=== PATIENT | female | born 1980 | race Two or more races ===

== ENCOUNTER → 2016-11-24 | Outpatient (CLI) | payer OTHER, MEDICAID ==
--- NOTE | 2016-11-24 13:30 | MA ---
Digital Screening Mammogram History: Bilateral breast implants. Screening mammogram. Right sided breast pain. Breast parenchymal density: Type III pattern. Technique: Four views of each breast are obtained including CC and oblique lateral Scar (implant di splaced) and non-Scar (implant not displaced) views. CAD is utilized using the iCAD product. Comparison: Baseline evaluation. Findings: Bilateral breast implants are in place. There are no masses, abnormal clusters of microcalc ifications, or lymphadenopathy. Impression: Negative mammogram. BI-RADS 1. The [employer] recommends routine rex al mammogram to begin at age 40 unless clinically indicated to perform earlier. Clinical followup is recommended on all palpable nodules. Despite negative or benign imaging, if the palpable abnormality increases in size, additional imaging followup may be necessary or possibly kayla gical consultation. [facility] will send a result letter to the patient. The results of this study were rev iewed with the patient through an language interpreter. Negative mammography should not preclude additional workup of a clinically suspicious finding. The patient's information is entered into a reminder system with a target due date for her next mammo gram.
== END ==
LOC: BMCIMAGING 12:20
PROVIDERS: ATTEND Internal Medicine
DX: N64.4 Mastodynia (principal)
CPT/HCPCS: G0204

== ENCOUNTER → 2018-04-16 | Outpatient (CLI) | payer OTHER, MEDICAID | LOC: BMCIMAGING 15:51 | PROVIDERS: ATTEND Internal Medicine | DX: M79.604 Pain in right leg (principal); M79.89 Other specified soft tissue disorders ==

== ENCOUNTER → 2018-08-05 | Outpatient (CLI) | payer OTHER | LOC: BMCIMAGING 16:12 | PROVIDERS: ATTEND Family Medicine | DX: M79.661 Pain in right lower leg (principal); M79.89 Other specified soft tissue disorders ==

== ENCOUNTER → 2019-02-25 | Outpatient (CLI) | payer MEDICAID | LOC: BMCIMAGING 16:25 | PROVIDERS: ATTEND Internal Medicine | DX: M79.604 Pain in right leg (principal); M79.89 Other specified soft tissue disorders ==

== ENCOUNTER → 2019-04-18 | Outpatient (CLI) | payer MEDICAID | LOC: FIMAGING 15:47 ==